=== PATIENT | female | born 1970 | race Two or more races ===

== ENCOUNTER 2019-03-13 15:24 | Emergency (ER) | payer MEDICAID ==
[~2019-03-13] VITALS: Ht 160 cm; Wt 68.0 kg
[2019-03-13 16:15] VITALS: BP 135/89
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
[2019-03-13] MEDS ORDERED: IBUPROFEN600 MG ORAL (17:24)
[2019-03-13] MEDS ORDERED: LIDODERM700 M1 TOPIC (17:24)
[2019-03-13] MEDS ORDERED: ROBAXIN-500MG ORAL (17:24)
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
[2019-03-13 17:55] VITALS: BP 144/81
--- NOTE | 2019-03-13 17:55 | NUR ---
ER DISCHARGE NOTE: Patient is cleared to be discharged per ERMD, pt is aox4, on room air, with stable vital signs. pt was given dc and prescription instructions, pt was able to verbalize understanding, pt id band removed. pt is able to ambulate with steady gait. pt took all belongings.
== END 2019-03-13 17:55 | disposition home or self-care (01) ==
LOC: EMR 16:19
DX: S16.1XXA Strain of muscle, fascia and tendon at neck level, initial encounter (principal); Z88.2 Allergy status to sulfonamides; V49.9XXA Car occupant (driver) (passenger) injured in unspecified traffic accident, initial encounter; Y92.410 Unspecified street and highway as the place of occurrence of the external cause
CPT/HCPCS: 99282